=== PATIENT | female | born 1990 | race African-American/Black ===

== ENCOUNTER 2016-07-25 16:28 | Emergency (ER) | payer SELFPAY ==
[~2016-07-25] VITALS: Ht 147.3 cm; Wt 62.6 kg
[~2016-07-25 16:28] MED LIST: AMOXICILLIN500 MG ORAL; IBUPROFEN600 MG ORAL; NORCO 5-325 TA1 EACH ORAL; ROBAXIN-750750 MG PO
[2016-07-25 16:55] VITALS: BP 103/61
[2016-07-25] MEDS ORDERED: Cyclobenzaprine 10mg Tab ORAL ONE (17:15)
[2016-07-25] MEDS ORDERED: CYCLOBENZAPRINE10 MG ORAL (18:15)
[2016-07-25] MEDS ORDERED: IBUPROFEN600 MG ORAL (18:15)
[2016-07-25 18:32] VITALS: BP 103/61
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
== END 2016-07-25 19:25 | disposition home or self-care (01) ==
LOC: EMR 19:25
DX: S16.1XXA Strain of muscle, fascia and tendon at neck level, initial encounter (principal); V49.40XA Driver injured in collision with unspecified motor vehicles in traffic accident, initial encounter; Y92.410 Unspecified street and highway as the place of occurrence of the external cause
CPT/HCPCS: 72040; 99284

== ENCOUNTER 2017-04-01 11:23 | Emergency (ER) | payer MEDICAID ==
[~2017-04-01] VITALS: Ht 147.3 cm; Wt 61.2 kg
[~2017-04-01 11:23] MED LIST changes: +CYCLOBENZAPRINE10 MG ORAL
[2017-04-01 11:38] VITALS: BP 101/68
[2017-04-01] MEDS ORDERED: IBUPROFEN600 MG ORAL (12:03)
--- NOTE | 2017-04-01 12:25 | Emergency Room Report ---
History of Present Illness General Chief Complaint: Flu Like Symptoms Source: Patient Present Illness HPI 26-year-old female presenting with 3 days of sore throat, subjective fever and chills. Patient states her throat worse with eating, no change in voice, no shortness of breath. No tongue or lip swelling. No sick contacts or recent travel. Up-to-date with immunizations Allergies: Coded Allergies: No Known Allergies (Unverified , 06/04/13) Patient History Past Medical History: see triage record Past Surgical History: none Pertinent Family History: none Last Menstrual Period: 01/14/17 Reviewed Nursing Documentation: PMH: Agreed, PSxH: Agreed Nursing Documentation-PMH Past Medical History: No Stated History Review of Systems All Other Systems: negative except mentioned in HPI Physical Exam Vital Signs Date Time Temp Pulse Resp B/P (MAP) Pulse Ox O2 Delivery O2 Flow Rate FiO2 04/01/17 11:26 97.9 90 16 101/68 99 Room Air Sp02 EP Interpretation: reviewed, normal General Appearance: normal inspection, well appearing, no apparent distress, alert, GCS 15, non-toxic Head: normocephalic, atraumatic Eyes: bilateral eye normal inspection, bilateral eye PERRL, bilateral eye EOMI ENT: normal voice, moist mucus membranes, other - Tonsillar and uvular erythema , enlargement, no exudates, uvula is midline Neck: normal inspection, full range of motion, supple Respiratory: normal inspection, lungs clear, normal breath sounds, no respiratory distress, no retraction, no wheezing, speaking full sentences, chest symmetrical Cardiovascular #1: normal inspection, regular rate, rhythm, no edema, normal capillary refill Cardiovascular #2: 2+ radial (R), 2+ radial (L) Gastrointestinal: normal inspection, non tender, soft, non-distended, no guarding Musculoskeletal: normal inspection, back normal, normal range of motion, non- tender Neurologic: normal inspection, alert, oriented x3, responsive, motor strength/ tone normal, sensory intact, normal gait, speech normal Psychiatric: normal inspection, judgement/insight normal, memory normal Skin: normal inspection, normal color, no rash, warm/dry, well hydrated, normal turgor Medical Decision Making Diagnostic Impression: Primary Impression: Viral pharyngitis ER Course 26-year-old female with sore throat DDX: viral vs. infectious mononucleosis vs. bacterial pharyngitis vs. allergies Other serious causes such as [employer] / RPA / deep space neck infection history/physical most consistent with viral pharyngitis Plan: Motrin,, supportive care. Abx not indicated at this time ER course: Patient remains stable in ED. Pt states improvement of pain with motrin. Disposition: Patient will be discharged to home. Patient will follow up with primary care doctor within 5 days. Strict return precautions discussed with patient such as worsening throat pain/swelling, dysphagia, high fever or chills, shortness of breath, abdominal pain, which may indicate severe illness. Patient verbalized understanding and agreed with plan. Please note that this Emergency Department Report was dictated using [employer] porter technology software, occasionally this can lead to erroneous entry secondary to interpretation by the dictation equipment. Last Vital Signs Date Time Temp Pulse Resp B/P (MAP) Pulse Ox O2 Delivery O2 Flow Rate FiO2 04/01/17 11:38 90 16 Room Air 04/01/17 11:38 97.9 101/68 99 Disposition: HOME, SELF-CARE Condition: Improved Scripts Ibuprofen* (MOTRIN*) 600 Mg Tablet 600 MG ORAL Q8H Y for For Pain, #30 TAB 0 Refills Prov: Alberto Bowman M.D. 04/01/17 Patient Instructions: Pharyngitis, [id number] Alberto Bowman M.D. Apr 01, 2017 12:25
[2017-04-01 12:30] VITALS: BP 107/73
== END 2017-04-01 12:35 | disposition home or self-care (01) ==
LOC: EMR 12:15
DX: J02.9 Acute pharyngitis, unspecified (principal)
CPT/HCPCS: 99283